=== PATIENT | female | born 1990 | race Caucasian/White ===

== ENCOUNTER 2017-04-23 11:17 | Emergency (ER) | payer MEDICAID ==
[~2017-04-23] VITALS: Ht 162.6 cm; Wt 68.0 kg
[~2017-04-23 11:17] MED LIST: ACET500C5 PO; CEPH-443 PO; HYDR-906 PO; IBUP800T25 PO; NO MEDS; PREN1TAB9 PO; PRENAT PO
[2017-04-23 11:24] VITALS: Ht 162.6 cm; Wt 68.0 kg
[2017-04-23 13:05] LABS: ADD SCAN DIFF NO
[2017-04-23 13:07] LABS: BASOPHILS % 0.4 % (0.0-2.0); EOSINOPHILS # 0.2 10^3/ul (0.0-0.5); HEMATOCRIT 40.9 % (37.0-47.0); HEMOGLOBIN 13.7 g/dl (12.0-16.0); LYMPHOCYTES # 2.1 10^3/ul (0.8-2.9); LYMPHOCYTES % 42.8 % (15.0-51.0); MEAN CORPUSCULAR HEMOGLOBIN 31.3 pg (29.0-33.0); MEAN CORPUSCULAR HGB CONC 33.5 g/dl (32.0-37.0); MEAN CORPUSCULAR VOLUME 93.4 fl (82.0-101.0); MEAN PLATELET VOLUME 9.1 fl (7.4-10.4); MONOCYTE # 0.4 10^3/ul (0.3-0.9); MONOCYTES % 7.6 % (0.0-11.0); NEUTROPHIL # 2.3 10^3/ul (1.6-7.5); NEUTROPHILS % 45.4 % (39.0-77.0); PLATELET COUNT 268 10^3/UL (140-415); RED BLOOD COUNT 4.38 10^6/ul (4.20-5.40); RED CELL DISTRIBUTION WIDTH 12.1 % (11.5-14.5)
[2017-04-23 13:26] LABS: ALBUMIN/GLOBULIN RATIO 1.51; BILIRUBIN,INDIRECT 0.3 mg/dl (0-1.1); BILIRUBIN,TOTAL 0.3 mg/dl (0.2-1.3); CALCIUM 9.4 mg/dl (8.4-10.2); CREATININE 0.61 mg/dl (0.44-1.00); POTASSIUM 4.2 mmol/L (3.5-5.1); TOTAL PROTEIN 8.3 g/dl (6.1-8.1)
[2017-04-23 13:28] LABS: ADD UMIC YES; UR ASCORBIC ACID NEGATIVE (NEGATIVE); UR BILIRUBIN (Dip) NEGATIVE (NEGATIVE); UR BLOOD (Dip) 1+ mg/dL (NEGATIVE); UR CLARITY CLEAR (CLEAR); UR COLOR YELLOW (YELLOW); UR GLUCOSE (Dip) NEGATIVE (NEGATIVE); UR KETONES (Dip) NEGATIVE (NEGATIVE); UR LEUKOCYTE ESTERASE (Dip) NEGATIVE Leu/ul (NEGATIVE); UR NITRITE (Dip) NEGATIVE (NEGATIVE); UR RBC 1 /HPF (0-5); UR SPECIFIC GRAVITY (Dip) 1.017 (1.003-1.030); UR TOTAL PROTEIN (Dip) NEGATIVE (NEGATIVE); UR UROBILINOGEN (Dip) NEGATIVE (NEGATIVE)
--- NOTE | 2017-04-23 14:10 | RADRPT ---
PROCEDURE: US Pelvis. CLINICAL INDICATION: 47 year-old female with left-sided pelvic pain. TECHNIQUE: Multiple sonographic images of the pelvis were obtained utilizing a transabdominal and endovaginal technique. The images were reviewed on a PACS workstation. COMPARISON: None. FINDINGS: The uterus is visualized and measures 7.3 cm sagittal by 3.3 cm AP by 4.3 cm transverse. The endomet rial echo complex is normal and measures 1.6 mm. There is a Nabothian cyst on the cervix measuring 3.8 mm.. There is no evidence for free fluid. The right ovary has a normal echotexture and measures 4 x 2.5 x 3.2 cm . There is a 1.8 x 0.9 was 0.8 cm minimally complex cyst or tiny septated fluid co llection in the area of the left adnexa. The left ovary is not visualized.. IMPRESSION: 1. 1.8 x 0 A 9 x 0.8 cm fluid collection/cyst with thin internal septations in the area of the left adnexa. This is likely benign. Recommend imaging follow-up and 8-10 weeks to see if this resolves. 2. The left ovary is not visualized. 3. 3.8 mm Nabothian cyst on the cervix. 4. Otherwise, unremarkable pelvic not of the sonogram. RPTAT:AAJJ Physician Loreta Date Time Electronically viewed and signed by Physician Loreta on 04/23/2017 14:09 ROSA/
[2017-04-23] MEDS ORDERED: FLUCONAZOLE 150 MG TAB PO ONE (16:00)
[2017-04-23] MEDS ORDERED: CEFTRIAXONE 250 MG INJ IM ONE (16:00)
[2017-04-23] MEDS ORDERED: LIDOCAINE 1% (MDV) 20 ML INJ SC ONE (16:00)
[2017-04-23] MEDS ORDERED: AZITHROMYCIN 250 MG TAB PO ONE (16:00)
[2017-04-23] MEDS ORDERED: IBUP-1542 PO (16:51)
[2017-04-23] MEDS ORDERED: FLUC150T17 PO (16:51)
[2017-04-23] MEDS ORDERED: METGEL45 TOP (16:51)
--- NOTE | 2017-04-23 17:15 | ERD ---
ER Documentation Chief Complaint Date/Time DATE: 04/23/17 TIME: 17:07 Chief Complaint intermittent abd pain x 4 months and nausea x 5 days HPI 27-year-old female patient presents to the ED complaining of intermittent abdominal pain for 4 months associated with some vaginal discharge. Patient reports that she has some left pelvic pain. Patient states that she has 1 sexual partner in the last 6 months. Reports that she last had sex 4 days ago. Reports that she smells a foul odor. Patient states that the vaginal discharge is white in color. Denies any diarrhea, fever, vomiting, chest pain, shortness of breath. ROS All systems reviewed and are negative except as per history of present illness. Medications Home Meds Active Scripts Fluconazole* (Diflucan*) 150 Mg Tablet, 150 MG PO DAILY, #1 TAB repeat in 3 days if vaginal discharge does not improve Prov:BRENT OTERO PA-C 04/23/17 Metronidazole* (Metrogel*) 0.75% -45 Gram Gel, 1 APPLIC TOP BID for 5 Days, #1 TUB Prov:BRENT OTERO PA-C 04/23/17 Ibuprofen* (Motrin*) 600 Mg Tab, 600 MG PO Q6, #30 TAB Prov:BRENT OTERO PA-C 04/23/17 Ibuprofen* (Motrin*) 800 Mg Tab, 800 MG PO Q6H Y for PAIN AND OR ELEVATED TEMP, #30 TAB Prov:FABIOLA FOUNTAIN MD 10/10/16 Cephalexin* (Keflex*) 500 Mg Capsule, 500 MG PO QID for 7 Days, CAP Prov:BERENICE COHEN PA-C 09/04/16 Hydrocodone/Acetaminophen ([place] 5-325 Tablet) 1 Each Tablet, 1 TAB PO Q6H Y for PAIN, #12 TAB Prov:BERENICE COHEN PA-C 09/04/16 Acetaminophen* (Tylophen*) 500 Mg Capsule, 500 MG PO Q6H Y for PAIN, #30 TAB Prov:MOR YU NP 12/09/15 Multivit/Min/Fol Ac/Iron/Pren* ( S*) 1 Tab Tab, 1 TAB PO DAILY, #30 TAB Prov:MOR YU NP 12/09/15 Reported Medications [none] Unknown Strength No Conflict Check 12/09/15 [No Meds ] No Conflict Check 03/08/14 Vits W-Ca,Fe,Fa(<1MG) ( #2) 1 Tab Tablet, 1 TAB PO DAILY 02/12/14 [None] No Conflict Check 06/19/10 Allergies Allergies: Coded Allergies: No Known Drug Allergies (Verified Allergy, Unknown, 04/23/17) PMhx/Soc Medical and Surgical Hx: pt denies Medical Hx, pt denies Surgical Hx History of Surgery: Yes (oophorectomy) Anesthesia Reaction: No Hx Neurological Disorder: No Hx Respiratory Disorders: No Hx Cardiac Disorders: No Hx Psychiatric Problems: No Hx Miscellaneous Medical Probl: No Hx Alcohol Use: No Hx Substance Use: No Hx Tobacco Use: No Smoking Status: Never smoker Physical Exam Vitals Vital Signs Date Time Temp Pulse Resp B/P Pulse Ox O2 Delivery O2 Flow Rate FiO2 04/23/17 11:24 98.0 94 18 129/70 98 Physical Exam Const: Hpx-spm-yuvicpbca, well-nourished. In no acute distress. Head: Atraumatic, normocephalic Eyes: Normal Conjunctiva without injection. No purulent discharge. ENT: Normal external ear, nose. Moist oropharynx without tonsillar exudates. Non -erythematous pharynx. Uvula midline. No drooling. No trismus. Neck: No cervical midline tenderness. Full range of motion. No meningismus. No cervical lymphadenopathy. No JVD. Resp: Clear to auscultation bilaterally. No wheezing, rhonchi, rales, or crackles. No accessory muscle use. No retractions. Cardio: Regular rate and rhythm. No murmurs, rubs or gallops. Abd: Soft, left pelvic tenderness, non distended. Normal bowel sounds. No palpable masses. No rebound tenderness. No guarding. Negative McBurney's point. Negative psoas sign. Negative obturator sign. : See exam in MDM. Skin: No petechiae or rashes Back: No midline tenderness. No CVA tenderness. Ext: No cyanosis, or edema. Neur: Awake and alert. Normal gait. Normal coordination. Psych: Normal Mood and Affect Results 24 hrs Laboratory Tests Test 04/23/17 12:35 04/23/17 12:55 Urine Color YELLOW Urine Clarity CLEAR Urine pH 7.0 Urine Specific [place] 1.017 Urine Ketones NEGATIVEmg/dL Urine Nitrite NEGATIVEmg/dL Urine Bilirubin NEGATIVEmg/dL Urine Urobilinogen NEGATIVEmg/dL Urine Leukocyte Esterase NEGATIVELeu/ul Urine Microscopic RBC 1/HPF Urine Microscopic WBC 1/HPF Urine Hemoglobin 1+mg/dL Urine Glucose NEGATIVEmg/dL Urine Total Protein NEGATIVEmg/dl White Blood Count 5.010^3/ul Red Blood Count 4.3810^6/ul Hemoglobin 13.7g/dl Hematocrit 40.9% Mean Corpuscular Volume 93.4fl Mean Corpuscular Hemoglobin 31.3pg Mean Corpuscular Hemoglobin Concent 33.5g/dl Red Cell Distribution Width 12.1% Platelet Count 56814^3/UL Mean Platelet Volume 9.1fl Neutrophils % 45.4% Lymphocytes % 42.8% Monocytes % 7.6% Eosinophils % 3.0% Basophils % 0.4% Nucleated Red Blood Cells % 0.0/100WBC Neutrophils # 2.310^3/ul Lymphocytes # 2.110^3/ul Monocytes # 0.410^3/ul Eosinophils # 0.210^3/ul Basophils # 0.010^3/ul Nucleated Red Blood Cells # 0.010^3/ul Sodium Level 139mmol/L Potassium Level 4.2mmol/L Chloride Level 102mmol/L Carbon Dioxide Level 30mmol/L Anion Gap 11 Blood Urea Nitrogen 12mg/dl Creatinine 0.61mg/dl Glucose Level 119mg/dl Calcium Level 9.4mg/dl Total Bilirubin 0.3mg/dl Direct Bilirubin 0.00mg/dl Indirect Bilirubin 0.3mg/dl Aspartate Amino Transf (AST/SGOT) 25IU/L Alanine Aminotransferase (ALT/SGPT) 29IU/L Alkaline Phosphatase 76IU/L Total Protein 8.3g/dl Albumin 5.0g/dl Globulin 3.30g/dl Albumin/Globulin Ratio 1.51 Lipase 71U/L Chlamydia trachomatis RNA (TMA) NOT DETECTED Chlamydia/GC Comment SEE NOTE Neisseria gonorrhoeae RNA (TMA) NOT DETECTED Current Medications Medications (Trade) Dose Ordered Sig/Griffin Route PRN Reason Start Time Stop Time Status Last Admin Dose Admin Fluconazole (Diflucan) 150 mg ONCE ONCE PO 04/23/17 16:00 04/23/17 16:01 DC 04/23/17 16:49 Azithromycin (Zithromax) 1,000 mg ONCE ONCE PO 04/23/17 16:00 04/23/17 16:01 DC 04/23/17 16:49 Ceftriaxone Sodium (Rocephin) 250 mg ONCE ONCE IM 04/23/17 16:00 04/23/17 16:01 DC 04/23/17 16:49 Lidocaine (Xylocaine 1% (Mdv) 20 ml) 20 ml ONCE ONCE SC 04/23/17 16:00 04/23/17 16:01 DC 04/23/17 16:49 Procedures/MDM 27-year-old female patient with no significant past medical history presents to the ED complaining of left pelvic pain, vaginal discharge. Patient is afebrile and nontoxic-appearing. Patient has normal vital signs. A pelvic ultrasound, CBC, CMP, lipase, urinalysis, urine was ordered to further evaluate patient. Patient also expresses some concern with chlamydia and gonorrhea, therefore the test is pending. CBC: No leukocytosis. No e/o of systemic infection. No e/o anemia. CMP: No e/o severe acidosis, alkalosis, renal failure, diabetic ketoacidosis, liver disease Lipase within normal limits. Urine: No leukocyte esterase, no nitrites, no hematuria. Negative urine . Pelvic Exam: Media Planner present Abdomen: [Nontender] External Genitalia: [Normal Skin] Speculum: [Normal vaginal mucosa, cheesy foul odor, white cervical discharge] Bimanual: [No adnexal masses or tenderness, No CMT] PROCEDURE: US Pelvis. CLINICAL INDICATION: 47 year-old female with left-sided pelvic pain. TECHNIQUE: Multiple sonographic images of the pelvis were obtained utilizing a transabdominal and endovaginal technique. The images were reviewed on a PACS workstation. COMPARISON: None. FINDINGS: The uterus is visualized and measures 7.3 cm sagittal by 3.3 cm AP by 4.3 cm transverse. The endometrial echo complex is normal and measures 1.6 mm. There is a Nabothian cyst on the cervix measuring 3.8 mm.. There is no evidence for free fluid. The right ovary has a normal echotexture and measures 4 x 2.5 x 3.2 cm . There is a 1.8 x 0.9 was 0.8 cm minimally complex cyst or tiny septated fluid collection in the area of the left adnexa. The left ovary is not visualized.. IMPRESSION: 1. 1.8 x 0 A 9 x 0.8 cm fluid collection/cyst with thin internal septations in the area of the left adnexa. This is likely benign. Recommend imaging follow-up and 8-10 weeks to see if this resolves. 2. The left ovary is not visualized. 3. 3.8 mm Nabothian cyst on the cervix. 4. Otherwise, unremarkable pelvic not of the sonogram. Patient's bleeding symptoms have stabilized while in the department. Patient's ultrasound shows an ovarian cyst. Patient also has a yeast infection based on cheesy discharge and was given Diflucan here in the ED. Ceftriaxone and Zithromax ordered and given for prophylaxis. Patient was strictly instructed to follow-up with an BUSINESS DIVISION CHAIR for further evaluation and treatment. Low suspicion for symptomatic anemia, ectopic , sepsis, PID, appendicitis, ovarian torsion, tubo-ovarian abscess, surgical abdomen, or other emergent conditions. Patient was educated that there is a risk for threatened . Discharge medications: Diflucan, MetroGel, Ibuprofen Patient to follow up with BUSINESS DIVISION CHAIR in 2 days for further evaluation and treatment. Patient is to return sooner to the ED for any worsening symptoms. Patient's questions were answered. Patient understood and agreed with discharge plan. Departure Diagnosis: Primary Impression: Vaginal discharge Additional Impression: Ovarian cyst Laterality: left Qualified Code: N83.202 - Cyst of left ovary Condition: Stable Patient Instructions: What Are Ovarian Cysts?, Vaginal Infection: Bacterial Vaginosis, Vaginal Infection: Yeast (Candidiasis) Referrals: [facility] YOU HAVE RECEIVED A MEDICAL SCREENING EXAM AND THE RESULTS INDICATE THAT YOU DO NOT HAVE A CONDITION THAT REQUIRES URGENT TREATMENT IN THE EMERGENCY DEPARTMENT. FURTHER EVALUATION AND TREATMENT OF YOUR CONDITION CAN WAIT UNTIL YOU ARE SEEN IN YOUR DOCTORS OFFICE WITHIN THE NEXT 1-2 DAYS. IT IS YOUR RESPONSIBILITY TO MAKE AN APPOINTMENT FOR FOLOW-UP CARE. IF YOU HAVE A PRIMARY DOCTOR --you should call your primary doctor and schedule an appointment IF YOU DO NOT HAVE A PRIMARY DOCTOR YOU CAN CALL OUR PHYSICIAN REFERRAL HOTLINE AT IF YOU CAN NOT AFFORD TO SEE A PHYSICIAN YOU CAN CHOSE FROM THE FOLLOWING [facility] [address] [facility]. [facility] [address] [facility] [facility] [address] [facility] [address] [facility] [address] [facility]. [facility]. [address] [facility]. [facility] YOU HAVE RECEIVED A MEDICAL SCREENING EXAM AND THE RESULTS INDICATE THAT YOU DO NOT HAVE A CONDITION THAT REQUIRES URGENT TREATMENT IN THE EMERGENCY DEPARTMENT. FURTHER EVALUATION AND TREATMENT OF YOUR CONDITION CAN WAIT UNTIL YOU ARE SEEN IN YOUR DOCTORS OFFICE WITHIN THE NEXT 1-2 DAYS. IT IS YOUR RESPONSIBILITY TO MAKE AN APPOINTMENT FOR FOLOW-UP CARE. IF YOU HAVE A PRIMARY DOCTOR --you should call your primary doctor and schedule and appointment IF YOU DO NOT HAVE A PRIMARY DOCTOR YOU CAN CALL OUR PHYSICIAN REFERRAL HOTLINE AT . IF YOU CAN NOT AFFORD TO SEE A PHYSICIAN YOU CAN CHOSE FROM THE FOLLOWING [facility] INSTITUTIONS: [facility] [address] [place] [address] [facility] [address] [place] [address] [facility] + [facility] [address] [place] [address] BUSINESS [employer] [place] [address] [facility] [address] [place], [place] [id number] OFFICE FAX MADHURI ANDERSON [address] [place], [place] [id number]EREIRA [place] [address] [place], [place] [id number] JASON CARLOS [address] [facility], [address] [address] [address] [place], [place] [phone] [facility] [address] [place], [place] [id number] [address] [facility], [facility] [id number] - DR YUSUF, THOMAS [address], [facility] [id number] GERBER, AB[place]OL[place] [address] [facility]. [address], [facility] [id number] WEEMS, FARID [address] [place] [address] [facility] Hours: 8:00 am - 5:00 pm Additional Instructions: Llame al doctor ovidio nydia PREET PARA DENTRO DE 2-3 PRITCHARD para nydia referencia a un obstetra/gineclogo para evaluacin adicional y tratamiento.Dgale a la secretaria que nosotros le instruimos hacer esta preet.Avise o llame si porras condicin se empeora antes de la preet. Regresa aqui si peor o no mejor. BRENT OTERO PA-C Apr 23, 2017 17:15
== END 2017-04-23 17:27 | disposition home or self-care (01) ==
LOC: FTE 11:17
DX: N89.8 Other specified noninflammatory disorders of vagina (principal); N83.202 Unspecified ovarian cyst, left side
CPT/HCPCS: 76830; 76856; 80053; 81001; 83690; 85025; 87591; J0696; Z7610; 36415; 96372

== ENCOUNTER 2017-06-06 21:13 | Emergency (ER) | payer SELFPAY ==
[~2017-06-06] VITALS: Ht 167.6 cm; Wt 58.0 kg
[~2017-06-06 21:13] MED LIST changes: +FLUC150T17 PO; +IBUP-1542 PO; +METGEL45 TOP
[2017-06-06 21:15] VITALS: Ht 167.6 cm; Wt 58.0 kg
[2017-06-06] MEDS ORDERED: morphine 4 MG/ML VIAL IV STA (22:01)
[2017-06-06] MEDS ORDERED: SOD CHLORIDE 0.9% 1,000 ML IV STA (22:01)
[2017-06-06] MEDS ORDERED: ONDANSETRON 4 MG INJ IV STA (22:01)
[2017-06-06 22:43] LABS: BASOPHILS % 0.4 % (0.0-2.0); EOSINOPHILS # 0.1 10^3/ul (0.0-0.5); EOSINOPHILS % 1.8 % (0.0-7.0); HEMATOCRIT 38.7 % (37.0-47.0); HEMOGLOBIN 13.5 g/dl (12.0-16.0); LYMPHOCYTES # 2.2 10^3/ul (0.8-2.9); LYMPHOCYTES % 29.5 % (15.0-51.0); MEAN CORPUSCULAR HEMOGLOBIN 31.9 pg (29.0-33.0); MEAN CORPUSCULAR HGB CONC 34.9 g/dl (32.0-37.0); MEAN CORPUSCULAR VOLUME 91.5 fl (82.0-101.0); MONOCYTE # 0.5 10^3/ul (0.3-0.9); MONOCYTES % 6.4 % (0.0-11.0); NEUTROPHILS % 61.5 % (39.0-77.0); PLATELET COUNT 271 10^3/UL (140-415); RED BLOOD COUNT 4.23 10^6/ul (4.20-5.40); WHITE BLOOD COUNT 7.3 10^3/ul (4.8-10.8)
[2017-06-06 22:49] LABS: ADD UMIC YES; UR ASCORBIC ACID NEGATIVE (NEGATIVE); UR BACTERIA FEW /HPF (NONE SEEN); UR BILIRUBIN (Dip) NEGATIVE (NEGATIVE); UR BLOOD (Dip) 2+ mg/dL (NEGATIVE); UR CLARITY CLEAR (CLEAR); UR COLOR STRAW (YELLOW); UR GLUCOSE (Dip) NEGATIVE (NEGATIVE); UR KETONES (Dip) NEGATIVE (NEGATIVE); UR LEUKOCYTE ESTERASE (Dip) 3+ Leu/ul (NEGATIVE); UR NITRITE (Dip) NEGATIVE (NEGATIVE); UR RBC 3 /HPF (0-5); UR SPECIFIC GRAVITY (Dip) 1.006 (1.003-1.030); UR SQUAMOUS EPITHELIAL CELL FEW /HPF (FEW); UR TOTAL PROTEIN (Dip) NEGATIVE (NEGATIVE); UR UROBILINOGEN (Dip) NEGATIVE (NEGATIVE)
[2017-06-06 23:05] LABS: ALANINE AMINOTRANSFERASE 32 IU/L (13-69); ALBUMIN 4.5 g/dl (3.3-4.9); ALBUMIN/GLOBULIN RATIO 1.28; ALKALINE PHOSPHATASE 82 IU/L (42-121); ANION GAP 22 (8-16); ASPARTATE AMINO TRANSFERASE 31 IU/L (15-46); BLOOD UREA NITROGEN 13 mg/dl (7-20); CARBON DIOXIDE 25 mmol/L (21-31); CHLORIDE 107 mmol/L (97-110); CREATININE 0.58 mg/dl (0.44-1.00); GLUCOSE 100 mg/dl (70-220); POTASSIUM 3.8 mmol/L (3.5-5.1); SODIUM 150 mmol/L (135-144)
[2017-06-06 23:10] LABS: ACETAMINOPHEN < 10.0 ug/ml (10.0-30.0); SALICYLATE < 1.0 mg/dl (5.0-30.0)
[2017-06-06 23:17] LABS: BARBITURATES Negative (NEGATIVE); BENZODIAZEPINES Negative (NEGATIVE); BILIRUBIN,INDIRECT 0.1 mg/dl (0-1.1); BILIRUBIN,TOTAL 0.1 mg/dl (0.2-1.3); CANNABINOIDS Negative (NEGATIVE); COCAINE Negative (NEGATIVE); OPIATES Negative (NEGATIVE)
--- NOTE | 2017-06-06 23:56 | RADRPT ---
PROCEDURE: CT ABDOMEN/PELVIS WITHOUT CONTRAST CLINICAL INDICATION: 27-year-old female with abdominal pain. TECHNIQUE: The study was performed utilizing a GE CytoValepeed VCT 64-slice CT scanner. Direct axia l sections were obtained through the abdomen and pelvis without the use of intravenous contrast mate rial. Sagittal and coronal reformations were obtained. One or more of the following dose reduction t echniques were utilized: automated exposure control, adjustment of the mA and/or kV according to pat ient's size or use of iterative reconstruction technique. The [facility] CTD/vol = 8.7 mGy; Total Exam DLP = 533.6 mGy-cm. COMPARISON: None. FINDINGS: There is trace bibasilar subsegmental atelectasis. There is no evidence for significant pleural eff usion. The liver has a normal size and contour. There is a nonspecific punctate 2 mm calcification within the left lobe of the liver near the dome of the diaphragm on axial image 3-26 and coronal im age 601-37. No intrahepatic nor extrahepatic biliary ductal dilatation is seen. The gallbladder dem onstrates no wall thickening nor pericholecystic fluid. No biliary stones are evident. The pancreas is without areas of abnormal attenuation. The spleen is identified and has a normal size without ab normal density. The adrenal glands are unremarkable. The kidneys are without abnormal density. No hy droureteronephrosis nor nephroureterolithiasis is evident. The urinary bladder contains urine. There is retained stool within the colon without evidence for bowel obstruction. The appendix is visuali zed and is without abnormal thickening or surrounding inflammatory reaction. The uterus is anteflexed. There is a right ovarian cyst measuring approximately 4.2 x 4.4 x 2.8 cm. There is no significant free fluid. The aortoiliac vessels are without aneurysmal dilatation. The osseous struc tures are intact. IMPRESSION: 1. Mild retained stool without evidence for bowel obstruction. 2. No CT evidence for appendicitis. 3. Right ovarian cyst. .Henrry Srinivasan MD, Date Time Electronically viewed and signed by .Henrry Srinivasan MD, MD on 06/06/2017 23:55 .[place]
--- NOTE | 2017-06-07 00:29 | RADRPT ---
PROCEDURE: CHEST - 1 VIEW CLINICAL INDICATION: 27-year-old female with shortness of breath. TECHNIQUE: A single frontal AP semi-erect portable view of the chest was performed. The images we re reviewed on a PACS workstation. COMPARISON: None. FINDINGS: The cardiomediastinal silhouette has a normal appearance. There is no evidence for an infiltrate. T he pulmonary vascularity is within normal limits. There is no evidence for pneumothorax or pneumomed iastinum. The osseous structures are intact. IMPRESSION: No evidence for active cardiopulmonary disease. .Henrry Srinivasan MD, Date Time Electronically viewed and signed by .Henrry Srinivasan MD, on 06/07/2017 00:29 .Emily/
[2017-06-07 00:53] VITALS: BP 105/76; PULSE 76; RESP 16
--- NOTE | 2017-06-07 01:46 | ERD ---
ER Documentation Chief Complaint Date/Time DATE: 06/07/17 TIME: 01:45 Chief Complaint chest congestion w/HAs,N/V,slight wheeze x 2 days HPI Patient is a 27-year-old female with no medical problems who presents with abdominal pain. She has had the symptoms for "a long time" but the pain was worse today. She describes it as a diffuse and constant pain. She had shortness of breath. She has had no treatment as of yet. She came in with her . Upon review of old medical record she has multiple visits to the ER for various complaints. She does not currently have a primary doctor. ROS All systems reviewed and are negative except as per history of present illness. Medications Home Meds Active Scripts Fluconazole* (Diflucan*) 150 Mg Tablet, 150 MG PO DAILY, #1 TAB repeat in 3 days if vaginal discharge does not improve Prov:BRENT OTERO PA-C 04/23/17 Metronidazole* (Metrogel*) 0.75% -45 Gram Gel, 1 APPLIC TOP BID for 5 Days, #1 TUB Prov:BRENT OTERO PA-C 04/23/17 Ibuprofen* (Motrin*) 600 Mg Tab, 600 MG PO Q6, #30 TAB Prov:BRENT OTERO PA-C 04/23/17 Ibuprofen* (Motrin*) 800 Mg Tab, 800 MG PO Q6H Y for PAIN AND OR ELEVATED TEMP, #30 TAB Prov:FABIOLA FOUNTAIN MD 10/10/16 Cephalexin* (Keflex*) 500 Mg Capsule, 500 MG PO QID for 7 Days, CAP Prov:BERENICE COHEN PA-C 09/04/16 Hydrocodone/Acetaminophen ([place] 5-325 Tablet) 1 Each Tablet, 1 TAB PO Q6H Y for PAIN, #12 TAB Prov:BERENICE COHEN PA-C 09/04/16 Acetaminophen* (Tylophen*) 500 Mg Capsule, 500 MG PO Q6H Y for PAIN, #30 TAB Prov:MOR YU NP 12/09/15 Multivit/Min/Fol Ac/Iron/Pren* ( S*) 1 Tab Tab, 1 TAB PO DAILY, #30 TAB Prov:MOR YU NP 12/09/15 Reported Medications [none] Unknown Strength No Conflict Check 12/09/15 [No Meds ] No Conflict Check 03/08/14 Vits W-Ca,Fe,Fa(<1MG) ( #2) 1 Tab Tablet, 1 TAB PO DAILY 02/12/14 [None] No Conflict Check 06/19/10 Allergies Allergies: Coded Allergies: No Known Drug Allergies (Verified Allergy, Unknown, 04/23/17) PMhx/Soc History of Surgery: Yes (oophorectomy) Anesthesia Reaction: No Hx Neurological Disorder: No Hx Respiratory Disorders: No Hx Cardiac Disorders: No Hx Psychiatric Problems: No Hx Miscellaneous Medical Probl: No Hx Alcohol Use: No Hx Substance Use: No Hx Tobacco Use: No Smoking Status: Never smoker FmHx Family History: No diabetes Physical Exam Vitals Vital Signs Date Time Temp Pulse Resp B/P Pulse Ox O2 Delivery O2 Flow Rate FiO2 06/07/17 00:53 76 16 105/76 95 Room Air 06/06/17 21:15 99.0 107 24 113/57 98 Physical Exam Const: Moderate distress Head: Atraumatic Eyes: Normal Conjunctiva ENT: Normal External Ears, Nose and Mouth. Neck: Full range of motion..~ No meningismus. Resp: Clear to auscultation bilaterally Cardio: Regular rate and rhythm, no murmurs Abd: Soft, Diffuse tenderness to palpation without rebound or guarding Skin: No petechiae or rashes Back: No midline or flank tenderness Ext: No cyanosis, or edema Neur: Awake Confused Psych: Normal Mood and Affect Result Diagram: 06/06/17221906/06/170 Results 24 hrs Laboratory Tests Test 06/06/17 22:20 White Blood Count 7.310^3/ul Red Blood Count 4.2310^6/ul Hemoglobin 13.5g/dl Hematocrit 38.7% Mean Corpuscular Volume 91.5fl Mean Corpuscular Hemoglobin 31.9pg Mean Corpuscular Hemoglobin Concent 34.9g/dl Red Cell Distribution Width 13.0% Platelet Count 08049^3/UL Mean Platelet Volume 9.0fl Neutrophils % 61.5% Lymphocytes % 29.5% Monocytes % 6.4% Eosinophils % 1.8% Basophils % 0.4% Nucleated Red Blood Cells % 0.0/100WBC Neutrophils # (Manual) 4.510^3/ul Lymphocytes # 2.210^3/ul Monocytes # 0.510^3/ul Eosinophils # 0.110^3/ul Basophils # 0.010^3/ul Nucleated Red Blood Cells # 0.010^3/ul Urine Color STRAW Urine Clarity CLEAR Urine pH 7.0 Urine Specific [place] 1.006 Urine Ketones NEGATIVEmg/dL Urine Nitrite NEGATIVEmg/dL Urine Bilirubin NEGATIVEmg/dL Urine Urobilinogen NEGATIVEmg/dL Urine Leukocyte Esterase 3+Norris/ul Urine Microscopic RBC 3/HPF Urine Microscopic WBC 4/HPF Urine Squamous Epithelial Cells FEW/HPF Urine Bacteria FEW/HPF Urine Hemoglobin 2+mg/dL Urine Glucose NEGATIVEmg/dL Urine Total Protein NEGATIVEmg/dl Sodium Level 150mmol/L Potassium Level 3.8mmol/L Chloride Level 107mmol/L Carbon Dioxide Level 25mmol/L Anion Gap 22 Blood Urea Nitrogen 13mg/dl Creatinine 0.58mg/dl Glucose Level 100mg/dl Calcium Level 9.0mg/dl Total Bilirubin 0.1mg/dl Direct Bilirubin 0.00mg/dl Indirect Bilirubin 0.1mg/dl Aspartate Amino Transf (AST/SGOT) 31IU/L Alanine Aminotransferase (ALT/SGPT) 32IU/L Alkaline Phosphatase 82IU/L Total Protein 8.0g/dl Albumin 4.5g/dl Globulin 3.50g/dl Albumin/Globulin Ratio 1.28 Lipase 63U/L Salicylates Level < 1.0mg/dl Urine Opiates Screen Negative Acetaminophen Level < 10.0ug/ml Urine Barbiturates Negative Urine Amphetamines Screen Negative Urine Benzodiazepines Screen Negative Urine Cocaine Screen Negative Urine Cannabinoids Negative Ethyl Alcohol Level 285.0mg/dl Current Medications Medications (Trade) Dose Ordered Sig/Griffin Route PRN Reason Start Time Stop Time Status Last Admin Dose Admin Sodium Chloride (NS) 1,000 ml @ 1,000 mls/hr Q1H STAT IV 06/06/17 22:01 06/06/17 23:00 DC 06/06/17 22:34 Ondansetron HCl (Zofran Inj) 4 mg ONCE STAT IV 06/06/17 22:01 06/06/17 22:03 DC 06/06/17 22:34 Morphine Sulfate (morphine) 4 mg ONCE STAT IV 06/06/17 22:01 06/06/17 22:03 DC 06/06/17 22:35 Procedures/MDM CT scan of the abdomen pelvis shows no acute surgical process per radiology. Patient is a 27-year-old female who presents with abdominal pain. She was slightly confused and had shortness of breath as well. She smelled of alcohol so a psychiatric workup was done as well and the patient was found to have a significantly elevated alcohol level of 285. I believe this is likely the cause of most of her symptoms. I doubt cholecystitis, pancreatitis, appendicitis, or bowel obstruction. The patient will need follow-up with a primary doctor she does not currently have a primary doctor. She will be given a list of the local clinics for follow-up with. She was instructed not to drink alcohol to excess in the future. Her did not know she was drinking alcohol. Departure Diagnosis: Primary Impression: Alcohol intoxication Complication of substance-induced condition: with delirium Qualified Code: F10.921 - Alcohol intoxication with delirium Additional Impressions: Altered mental status Altered mental status type: unspecified Qualified Code: R41.82 - Altered mental status, unspecified altered mental status type Abdominal pain Abdominal location: generalized Qualified Code: R10.84 - Generalized abdominal pain Condition: Fair Patient Instructions: Abdominal Pain, Alcohol Intoxication [facility] Usted se guy hecho un examen mdico de control que le indica que no est en nydia condicin que requiera tratamiento urgente en el Departamento de Emergencia. Un estudio ms profundo y el tratamiento de porras condicin pueden esperar sin ningn riesgo hasta que usted sea atendida/o en el consultorio de porras mdico o nydia cl mayelin. Es responsabilidad suya arreglar nydia preet para el seguimiento del iris. MANEJO DE CONDICIONES NO URGENTES EN EL FUTURO 1) Si usted tiene un mdico de atencin primaria: Usted debera llamar a porras mdico de atencin primaria antes de venir al departamento de emergencia. Despus de las horas de consultorio, porras doctor o porras asociado/a est disponible por telfono. El mdico o enfermero de evan en el servicio telefnico puede asesorarle por wally medio para atender el problema, o iris contrario se puede programar nydia preet. 2) Si usted no tiene un mdico de atencin primaria: Llame al mdico o clnica de referencia que aparece abajo abrahan las horas de consultorio para hacer nydia preet para que le vean. CLINICAS: [facility] [phone] [facility] [phone] [address] [facility] [phone] [facility]. [place] [phone] [facility]. [place] [phone] [facility]. [phone] [address] Additional Instructions: Llame al doctor MAANA y ovidio nydia PREET PARA DENTRO DE 1-2 PRITCHARD.Dgale a la secretaria que nosotros le instruimos hacer esta preet.Avise o llame si porras condicin se empeora antes de la preet. Regresa aqui si peor o no mejor. NETO MARQUES MD Jun 07, 2017 01:46
== END 2017-06-07 00:54 | disposition home or self-care (01) ==
LOC: E/R 21:13
DX: F10.921 Alcohol use, unspecified with intoxication delirium (principal); R41.82 Altered mental status, unspecified; R11.2 Nausea with vomiting, unspecified
CPT/HCPCS: 36415; 71010; 74176; 80053; 80306; 80307; 81001; 83690; 85025; 93005; 96374; 96375; 99285; J2270; J2405; J7030

== ENCOUNTER 2017-07-30 19:10 | Emergency (ER) | payer MEDICAID ==
[~2017-07-30] VITALS: Ht 162.6 cm; Wt 68.5 kg
[2017-07-30 19:17] VITALS: Ht 162.6 cm; Wt 68.5 kg
[2017-07-30] MEDS ORDERED: FAMOTIDINE 20 MG INJ IV STA (21:22)
[2017-07-30] MEDS ORDERED: LIDOCAINE/MYLANTA 40 ML BTL PO STA (21:22)
[2017-07-30] MEDS ORDERED: ONDANSETRON 4 MG INJ IV STA (21:59)
--- NOTE | 2017-07-30 23:03 | RADRPT ---
PROCEDURE: XR Chest. CLINICAL INDICATION: Abdominal pain TECHNIQUE: AP Portable chest. COMPARISON: No pertinent prior examinations were submitted for comparison. FINDINGS: The cardiomediastinal silhouette is normal. The lungs are clear. The osseous structures are unrema rkable. There is no free air under the diaphragm. IMPRESSION: No acute findings. RPTAT: HIKT .Bassam Hanks MD, MD Date Time Electronically viewed and signed by .Bassam Hanks MD, on 07/30/2017 23:03 .T/
[2017-07-30 23:04] LABS: BASOPHILS % 0.2 % (0.0-2.0); EOSINOPHILS # 0.1 10^3/ul (0.0-0.5); EOSINOPHILS % 0.4 % (0.0-7.0); HEMATOCRIT 37.9 % (37.0-47.0); HEMOGLOBIN 13.1 g/dl (12.0-16.0); LYMPHOCYTES # 1.3 10^3/ul (0.8-2.9); LYMPHOCYTES % 9.6 % (15.0-51.0); MEAN CORPUSCULAR HEMOGLOBIN 32.1 pg (29.0-33.0); MEAN CORPUSCULAR HGB CONC 34.6 g/dl (32.0-37.0); MEAN CORPUSCULAR VOLUME 92.9 fl (82.0-101.0); MEAN PLATELET VOLUME 9.6 fl (7.4-10.4); MONOCYTE # 0.6 10^3/ul (0.3-0.9); MONOCYTES % 4.3 % (0.0-11.0); NEUTROPHIL # 11.2 10^3/ul (1.6-7.5); NEUTROPHILS % 85.1 % (39.0-77.0); PLATELET COUNT 277 10^3/UL (140-415); RED BLOOD COUNT 4.08 10^6/ul (4.20-5.40); RED CELL DISTRIBUTION WIDTH 12.2 % (11.5-14.5); WHITE BLOOD COUNT 13.2 10^3/ul (4.8-10.8)
--- NOTE | 2017-07-30 23:05 | RADRPT ---
PROCEDURE: US Pelvis CLINICAL INDICATION: Left pelvic pain. TECHNIQUE: Sonographic evaluation of the pelvis was performed utilizing both transabdominal and tr ansvaginal technique. Images were reviewed on the high-resolution PACS workstation. COMPARISON: CT pelvis 06/06/2017, ultrasound pelvis 04/23 2017 FINDINGS: The uterus is normal in size, echogenicity, and morphology. The uterus is a 0.4 x 4 x 4.8 cm. The endometrium is 1.5 mm measuring x in diameter. The right ovary measures 4.5 x 4 x 3.7 cm. There is a 3.2 x 2.5 x 3.7 cm simple cyst in the right ov angela. Right ovary is otherwise normal appearance of vascular flow. Left ovary was not visualized.. There are no adnexal masses. There is no free fluid in the pelvis. IMPRESSION: 1. Normal examination of the uterus. 2. Simple right ovarian cyst. 3. Left ovary not identified. 4. No adnexal mass or free fluid RPTAT: HMVK .Felipe Harley MD, MD Date Time Electronically viewed and signed by .Felipe aHrley MD, MD on 07/30/2017 23:05 .K/
[2017-07-30 23:23] LABS: ADD UMIC YES; UR ASCORBIC ACID NEGATIVE (NEGATIVE); UR BILIRUBIN (Dip) NEGATIVE (NEGATIVE); UR BLOOD (Dip) 1+ mg/dL (NEGATIVE); UR CLARITY CLEAR (CLEAR); UR COLOR YELLOW (YELLOW); UR GLUCOSE (Dip) NEGATIVE (NEGATIVE); UR KETONES (Dip) TRACE mg/dL (NEGATIVE); UR LEUKOCYTE ESTERASE (Dip) TRACE Leu/ul (NEGATIVE); UR MUCUS MANY /HPF (NONE SEEN); UR NITRITE (Dip) NEGATIVE (NEGATIVE); UR RBC 11 /HPF (0-5); UR SPECIFIC GRAVITY (Dip) 1.029 (1.003-1.030); UR SQUAMOUS EPITHELIAL CELL FEW /HPF (FEW); UR TOTAL PROTEIN (Dip) 1+ mg/dl (NEGATIVE); UR UROBILINOGEN (Dip) NEGATIVE (NEGATIVE)
[2017-07-30 23:24] LABS: ALBUMIN 4.3 g/dl (3.3-4.9); ALBUMIN/GLOBULIN RATIO 1.19; BILIRUBIN,INDIRECT 0.4 mg/dl (0-1.1); BILIRUBIN,TOTAL 0.4 mg/dl (0.2-1.3); CALCIUM 9.8 mg/dl (8.4-10.2); CREATININE 0.52 mg/dl (0.44-1.00); POTASSIUM 3.9 mmol/L (3.5-5.1); TOTAL PROTEIN 7.9 g/dl (6.1-8.1)
[2017-07-31] MEDS ORDERED: RANI150T9 PO
[2017-07-31] MEDS ORDERED: ACET500C5 PO
[2017-07-31] MEDS ORDERED: CEPH-443 PO
--- NOTE | 2017-07-31 01:05 | ERD ---
ER Documentation Chief Complaint Chief Complaint pelvic pain x 3 days, vomiting, back pain HPI 27-year-old female patient with a past medial history of ovarian cyst presents to the ED complaining of lower pelvic pain that started 3 days ago as well as a few episodes of nonbilious nonbloody vomiting and flank pain. Patient reports that her abdominal pain is mainly in the epigastric region and left lower quadrant. States that eating makes the pain worse. States that the pain radiates up to her chest. Reports that eating chili and spicy food makes her abdominal pain worse. Reports that this is a burning sensation. Denies any vaginal bleeding, vaginal discharge, dysuria, urgency, frequency. Patient also reports that she has some chest pain and is worse with breathing. Denies any recent traveling. Denies any leg swelling. Reports normal daily bowel movements. ROS All systems reviewed and are negative except as per history of present illness. Medications Home Meds Active Scripts Cephalexin* (Keflex*) 500 Mg Capsule, 500 MG PO QID for 7 Days, CAP Prov:BRENT OTERO PA-C 07/31/17 Ranitidine Hcl* (Zantac*) 150 Mg Tablet, 150 MG PO BID Y for EPIGASTRIC PAIN, # 30 TAB Prov:BRENT OTERO PA-C 07/31/17 Acetaminophen* (Tylophen*) 500 Mg Capsule, 1 CAP PO Q6H Y for PAIN AND OR ELEVATED TEMP, #20 CAP Prov:BRENT OTERO PA-C 07/31/17 Fluconazole* (Diflucan*) 150 Mg Tablet, 150 MG PO DAILY, #1 TAB repeat in 3 days if vaginal discharge does not improve Prov:BRENT OTERO PA-C 04/23/17 Metronidazole* (Metrogel*) 0.75% -45 Gram Gel, 1 APPLIC TOP BID for 5 Days, #1 TUB Prov:BRENT OTEROC 04/23/17 Ibuprofen* (Motrin*) 600 Mg Tab, 600 MG PO Q6, #30 TAB Prov:BRENT OTEROC 04/23/17 Ibuprofen* (Motrin*) 800 Mg Tab, 800 MG PO Q6H Y for PAIN AND OR ELEVATED TEMP, #30 TAB Prov:FABIOLA FOUNTAIN MD 10/10/16 Cephalexin* (Keflex*) 500 Mg Capsule, 500 MG PO QID for 7 Days, CAP Prov:BERENICE COHEN PA-C 09/04/16 Hydrocodone/Acetaminophen ([place] 5-325 Tablet) 1 Each Tablet, 1 TAB PO Q6H Y for PAIN, #12 TAB Prov:BERENICE COHEN PA-C 09/04/16 Acetaminophen* (Tylophen*) 500 Mg Capsule, 500 MG PO Q6H Y for PAIN, #30 TAB Prov:MOR YU NP 12/09/15 Multivit/Min/Fol Ac/Iron/Pren* ( S*) 1 Tab Tab, 1 TAB PO DAILY, #30 TAB Prov:MOR YU NP 12/09/15 Reported Medications [none] Unknown Strength No Conflict Check 12/09/15 [No Meds ] No Conflict Check 03/08/14 Vits W-Ca,Fe,Fa(<1MG) ( #2) 1 Tab Tablet, 1 TAB PO DAILY 02/12/14 [None] No Conflict Check 06/19/10 Allergies Allergies: Coded Allergies: No Known Drug Allergies (Verified Allergy, Unknown, 04/23/17) PMhx/Soc History of Surgery: Yes (ovarian cyst) Anesthesia Reaction: No Hx Neurological Disorder: No Hx Respiratory Disorders: No Hx Cardiac Disorders: No Hx Psychiatric Problems: No Hx Miscellaneous Medical Probl: No Hx Alcohol Use: No Hx Substance Use: No Hx Tobacco Use: No Smoking Status: Never smoker Physical Exam Vitals Vital Signs Date Time Temp Pulse Resp B/P Pulse Ox O2 Delivery O2 Flow Rate FiO2 07/30/17 19:17 99.1 89 20 133/78 98 Physical Exam Const: [id number], well-nourished. In no acute distress. Head: Atraumatic, normocephalic Eyes: Normal Conjunctiva without injection. No purulent discharge. ENT: Normal external ear, nose. Moist oropharynx without tonsillar exudates. Non -erythematous pharynx. Uvula midline. No drooling. No trismus. Neck: No cervical midline tenderness. Full range of motion. No meningismus. No cervical lymphadenopathy. No JVD. Resp: Clear to auscultation bilaterally. No wheezing, rhonchi, rales, or crackles. No accessory muscle use. No retractions. Cardio: Regular rate and rhythm. No murmurs, rubs or gallops. Abd: Soft, epigastric tenderness, left lower quadrant abdominal tenderness, non distended. Normal bowel sounds. No palpable masses. No rebound tenderness. No guarding. Negative McBurney's point. Negative psoas sign. Negative obturator sign. Skin: No petechiae or rashes Back: No midline tenderness. No CVA tenderness. Ext: No cyanosis, or edema. Neur: Awake and alert. Normal gait. Normal coordination. Psych: Normal Mood and Affect Results 24 hrs Laboratory Tests Test 07/30/17 22:20 White Blood Count 13.210^3/ul Red Blood Count 4.0810^6/ul Hemoglobin 13.1g/dl Hematocrit 37.9% Mean Corpuscular Volume 92.9fl Mean Corpuscular Hemoglobin 32.1pg Mean Corpuscular Hemoglobin Concent 34.6g/dl Red Cell Distribution Width 12.2% Platelet Count 89823^3/UL Mean Platelet Volume 9.6fl Neutrophils % 85.1% Lymphocytes % 9.6% Monocytes % 4.3% Eosinophils % 0.4% Basophils % 0.2% Nucleated Red Blood Cells % 0.0/100WBC Neutrophils # 11.210^3/ul Lymphocytes # 1.310^3/ul Monocytes # 0.610^3/ul Eosinophils # 0.110^3/ul Basophils # 0.010^3/ul Nucleated Red Blood Cells # 0.010^3/ul Urine Color YELLOW Urine Clarity CLEAR Urine pH 6.0 Urine Specific [place] 1.029 Urine Ketones TRACEmg/dL Urine Nitrite NEGATIVEmg/dL Urine Bilirubin NEGATIVEmg/dL Urine Urobilinogen NEGATIVEmg/dL Urine Leukocyte Esterase TRACELeu/ul Urine Microscopic RBC 11/HPF Urine Microscopic WBC 5/HPF Urine Squamous Epithelial Cells FEW/HPF Urine Mucus MANY/HPF Urine Hemoglobin 1+mg/dL Urine Glucose NEGATIVEmg/dL Urine Total Protein 1+mg/dl Sodium Level 140mmol/L Potassium Level 3.9mmol/L Chloride Level 103mmol/L Carbon Dioxide Level 29mmol/L Anion Gap 12 Blood Urea Nitrogen 16mg/dl Creatinine 0.52mg/dl Glucose Level 94mg/dl Calcium Level 9.8mg/dl Total Bilirubin 0.4mg/dl Direct Bilirubin 0.00mg/dl Indirect Bilirubin 0.4mg/dl Aspartate Amino Transf (AST/SGOT) 25IU/L Alanine Aminotransferase (ALT/SGPT) 26IU/L Alkaline Phosphatase 70IU/L Total Protein 7.9g/dl Albumin 4.3g/dl Globulin 3.60g/dl Albumin/Globulin Ratio 1.19 Lipase 49U/L Current Medications Medications (Trade) Dose Ordered Sig/Griffin Route PRN Reason Start Time Stop Time Status Last Admin Dose Admin Famotidine (Pepcid Iv) 20 mg ONCE STAT IV 07/30/17 21:22 07/30/17 21:25 DC 07/30/17 21:22 Miscellaneous Medication (Gi Cocktail (2)) 40 ml ONCE STAT PO 07/30/17 21:22 07/30/17 21:25 DC 07/30/17 21:22 Ondansetron HCl (Zofran Inj) 4 mg ONCE STAT IV 07/30/17 21:59 07/30/17 22:00 DC 07/30/17 22:57 Procedures/MDM 27-year-old female patient with no significant past medical history presents to the ED complaining of left lower quadrant abdominal pain and epigastric pain. Patient is afebrile and nontoxic-appearing. Patient has normal vital signs. Patient was further worked up with CBC, CMP, lipase, UA, CXR. Patient's pain and symptoms have improved after treatment with cocktail, 20 mg IV famotidine, 4 mg IV Zofran. CBC: Leukocytosis of 13.2. No e/o of systemic infection. No e/o anemia. CMP: No e/o severe acidosis, alkalosis, renal failure, diabetic ketoacidosis, liver disease Lipase within normal limits. Urine: No leukocyte esterase, no nitrites, no hematuria. Urine : negative PROCEDURE: XR Chest. CLINICAL INDICATION: Abdominal pain TECHNIQUE: AP Portable chest. COMPARISON: No pertinent prior examinations were submitted for comparison. FINDINGS: The cardiomediastinal silhouette is normal. The lungs are clear. The osseous structures are unremarkable. There is no free air under the diaphragm. IMPRESSION: No acute findings. PROCEDURE: US Pelvis CLINICAL INDICATION: Left pelvic pain. TECHNIQUE: Sonographic evaluation of the pelvis was performed utilizing both transabdominal and transvaginal technique. Images were reviewed on the high- resolution PACS workstation. COMPARISON: CT pelvis 06/06/2017, ultrasound pelvis 04/23 2017 FINDINGS: The uterus is normal in size, echogenicity, and morphology. The uterus is a 0.4 x 4 x 4.8 cm. The endometrium is 1.5 mm measuring x in diameter. The right ovary measures 4.5 x 4 x 3.7 cm. There is a 3.2 x 2.5 x 3.7 cm simple cyst in the right ovary. Right ovary is otherwise normal appearance of vascular flow. Left ovary was not visualized.. There are no adnexal masses. There is no free fluid in the pelvis. IMPRESSION: 1. Normal examination of the uterus. 2. Simple right ovarian cyst. 3. Left ovary not identified. 4. No adnexal mass or free fluid EKG reviewed and interpreted by Dr. Simpson Rate/Rhythm: [67 bpm, Normal Sinus Rhythm] No ectopy, no ST elevations, normal axis. QRS, ST, T-waves: [No changes consistent w/ acute ischemia] Impression: [No evidence of ischemia or arrhythmia] Patient has a simple right ovarian cyst. Low suspicion for ectopic , ovarian torsion, gastritis, GERD, peptic ulcer disease, cholecystitis, choledocholithiasis, cholangitis, pancreatitis, appendicitis, bowel obstruction , ileus, volvulus, nephrolithiasis, pyelonephritis, hepatitis, perforated viscus , diverticulitis, strangulated incarcerated hernia, DKA, acute abdomen, mesenteric ischemia or other emergent conditions. Low suspicion for acute myocardial infarction, pneumothorax, pneumonia, cardiac tamponade, Yumiko- Parkinson-White Syndrome, Brugada Syndrome, pulmonary embolism, AAA, aortic dissection, thoracic aortic dissection, endocarditis, pericarditis, cocaine- related ischema, Boerhaave's syndrome, cardiac dysrhythmias,meningitis, intracranial bleed, seizure, stroke, TIA or other emergent conditions. 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 Instructed patient to return to the ED sooner for any worsening symptoms. Patient's questions were answered. Patient understood and agreed with discharge plan. Patient discharged stable. Departure Diagnosis: Primary Impression: Abdominal pain Abdominal location: unspecified location Qualified Code: R10.9 - Abdominal pain, unspecified abdominal location Additional Impression: Flank pain Condition: Stable Patient Instructions: What Are Ovarian Cysts?, Urinary Tract Infections in Women, Gastritis Vs. Ulcer Referrals: [facility] () Usted se guy hecho un examen mdico de control que le indica que no est en nydia condicin que requiera tratamiento urgente en el Departamento de Emergencia. Un estudio ms profundo y el tratamiento de porras condicin pueden esperar sin ningn riesgo hasta que usted sea atendida/o en el consultorio de porras mdico o nydia cl mayelin. Es responsabilidad suya arreglar nydia preet para el seguimiento del iris. MANEJO DE CONDICIONES NO URGENTES EN EL FUTURO 1) Si usted tiene un mdico de atencin primaria: Usted debera llamar a porras mdico de atencin primaria antes de venir al departamento de emergencia. Despus de las horas de consultorio, porras doctor o porras asociado/a est disponible por telfono. El mdico o enfermero de evan en el servicio telefnico puede asesorarle por wally medio para atender el problema, o iris contrario se puede programar nydia preet. 2) Si usted no tiene un mdico de atencin primaria: Llame al mdico o clnica de referencia que aparece abajo abrahan las horas de consultorio para hacer nydia preet para que le vean. CLINICAS: [facility] [phone] [facility] [phone] [facility] [phone] [facility] [phone] [place] [phone] [facility]. [phone] [address] [facility]. [facility] () Usted se guy hecho un examen mdico de control que le indica que no est en nydia condicin que requiera tratamiento urgente en el Departamento de Emergencia. Un estudio ms profundo y el tratamiento de porras condicin pueden esperar sin ningn riesgo hasta que usted sea atendida/o en el consultorio de porras mdico o nydia cl mayelin. Es responsabilidad suya arreglar nydia preet para el seguimiento del iris. MANEJO DE CONDICIONES NO URGENTES EN EL FUTURO 1) Si usted tiene un mdico de atencin primaria: Usted debera llamar a porras mdico de atencin primaria antes de venir al departamento de emergencia. Despus de las horas de consultorio, porras doctor o porras asociado/a est disponible por telfono. El mdico o enfermero de evan en el servicio telefnico puede asesorarle por wally medio para atender el problema, o iris contrario se puede programar nydia preet. 2) Si usted no tiene un mdico de atencin primaria: Llame al mdico o condado institucions de referencia que aparece abajo abrahan las horas de consultorio para hacer nydia preet para que le vean. SI USTED NO PUEDE PAGAR PARA TALA UN MEDICO puede ir a: [facility] [address] [place] [address] [facility] [address] [place] [address] [facility] [address] [place] [address] [facility] [address] [place], [place] [id number] [facility]ENT [facility]/SPECIALTIES Additional Instructions: Llame al doctor MAANA y ovidio nydia PREET PARA DENTRO DE 2-3 PRITCHARD para nydia remisi n para tala a un gastroenterlogo para nydia endoscopia y METAL CEILING HANGER para la gerencia adicional de porras quiste ovrico.Dgale a la secretaria que nosotros le instruimos hacer esta preet.Avise o llame si porras condicin se empeora antes de la preet. Regresa aqui si peor o no mejor. BRENT OTERO PA-C Jul 31, 2017 01:05 preet. Regresa aqui si peor o no mejor. BRENT OTERO PA-C Jul 31, 2017 01:05 instruimos hacer esta preet.Avise o llame si porras condicin se empeora antes de la preet. Regresa aqui si peor o no mejor. BRENT OTERO PA-C Jul 31, 2017 01:05
== END 2017-07-31 00:25 | disposition home or self-care (01) ==
LOC: FTE 19:10
DX: R10.2 Pelvic and perineal pain (principal); R10.13 Epigastric pain; R10.32 Left lower quadrant pain; R11.10 Vomiting, unspecified
CPT/HCPCS: 36415; 71010; 76830; 76856; 80053; 81001; 83690; 85025; 93005; 96374; J2405; Z7502; Z7610

== ENCOUNTER 2018-04-20 14:00 | Emergency (ER) | END 2018-04-20 19:21 | disposition home or self-care (01) ==

== ENCOUNTER 2018-10-06 09:37 | Emergency (ER) | END 2018-10-06 11:30 | disposition home or self-care (01) ==

== ENCOUNTER 2018-12-23 18:41 | Emergency (ER) | payer SELFPAY ==
[~2018-12-23] VITALS: Ht 152.4 cm; Wt 66.0 kg
[~2018-12-23 18:41] MED LIST changes: +AMOX1TAB10 PO; +CIPR500T4 PO; +CIPR7.5D BOTH EARS; +CYCL10TA7 PO; +FLUC150T PO; -FLUC150T17 PO; +HYDR-4011 PO; -HYDR-906 PO; +IBUP-1561 PO; -IBUP800T25 PO; +IBUP800T48 PO; +MED4DP PO; +NAPR-985 PO; +RANI150T35 PO
[2018-12-23 18:52] VITALS: BP 122/76; PULSE 86; RESP 18; Ht 152.4 cm; Wt 66.0 kg
== END 2018-12-23 22:15 | disposition left against medical advice (07) ==
LOC: E/R 18:41
DX: Z53.21 Procedure and treatment not carried out due to patient leaving prior to being seen by health care provider (principal)

== ENCOUNTER 2019-02-23 16:49 | Emergency (ER) | payer MEDICAID, OTHER ==
[~2019-02-23] VITALS: Ht 162.6 cm; Wt 67.5 kg
[2019-02-23 16:54] VITALS: BP 128/60; PULSE 69; RESP 20; Ht 162.6 cm; Wt 67.5 kg
[2019-02-23] MEDS ORDERED: HYDROCODONE/APAP (5/325) TAB PO ONE (17:30)
--- NOTE | 2019-02-23 19:17 | ERD ---
ER Documentation Chief Complaint Chief Complaint c/o left rib pain after fall 4 days ago HPI Patient is a 28-year-old female no past medical history presents the ER for concerns of left-sided rib pain after a fall injury 4 days ago. Patient states 4 days ago she was cleaning her bathroom when she slipped on the wet tile and landed on the railing of the bathtub. Patient denies any head injuries. Patient denies any nausea or vomiting. Patient states pain is worse with movement. Patient does have some bruising to her left chest wall. Patient denies any chest pain, shortness of breath or LOC. ROS All systems reviewed and are negative except as per history of present illness. Medications Home Meds Active Scripts Methylprednisolone* (Medrol* DOSE PACK) 4 Mg/Dose-Pack Tab.ds.pk, 4 MG PO . DIRECTED, #1 PACKET Prov:MAME PARKER PA-C 10/06/18 Cyclobenzaprine Hcl* (Cyclobenzaprine Hcl*) 10 Mg Tablet, 10 MG PO TID, #15 TAB Prov:MAME PARKER PA-C 10/06/18 Ciprofloxacin Hcl* (Ciprofloxacin Hcl*) 500 Mg Tablet, 500 MG PO BID for 7 Days, TAB Prov:MAME PARKER PA-C 10/06/18 Naproxen* (Naprosyn*) 500 Mg Tablet, 500 MG PO BID PRN for PAIN AND/OR INFLAMMATION, #30 TAB Prov:MAME PARKER PA-C 10/06/18 Hydrocodone/Acetaminophen (Cumming 5-325 Tablet) 1 Each Tablet, 1 TAB PO Q6H PRN for PAIN, #7 TAB Prov:MAME PARKER PA-C 10/06/18 Ibuprofen* (Motrin*) 400 Mg Tab, 400 MG PO Q6, #30 TAB Prov:KAYODE ASHLEY PA-C 04/20/18 Acetaminophen* (Tylophen*) 500 Mg Capsule, 1 CAP PO Q6H PRN for PAIN AND OR ELEVATED TEMP, #20 CAP Prov:PASILABAN,GABBIEAR F 02/16/18 Ibuprofen* (Motrin*) 800 Mg Tab, 800 MG PO Q6H PRN for PAIN AND OR ELEVATED TEMP, #30 TAB Prov:PASILABANGABBIEAR F 02/16/18 Amoxicillin/Potassium Clav (Amox-Clav 875-125 mg Tablet) 875-125 mg Tab, 1 TAB PO BID for 10 Days, #20 TAB Prov:LISA VAZQUEZ 02/16/18 Ciprofloxacin Hcl/Dexameth (Ciprodex Otic Suspension) 7.5 Ml Drops.susp, 4 DROP BOTH EARS BID for 7 Days, EA Prov:LISA VAZQUEZ 02/16/18 Cephalexin* (Keflex*) 500 Mg Capsule, 500 MG PO QID for 7 Days, CAP Prov:BRENT OTERO PA-C 07/31/17 Ranitidine Hcl* (Zantac*) 150 Mg Tablet, 150 MG PO BID PRN for EPIGASTRIC PAIN, #30 TAB Prov:BRENT OTERO PA-C 07/31/17 Acetaminophen* (Tylophen*) 500 Mg Capsule, 1 CAP PO Q6H PRN for PAIN AND OR ELEV ATED TEMP, #20 CAP Prov:BRENT OTERO PA-C 07/31/17 Fluconazole* (Diflucan*) 150 Mg Tablet, 150 MG PO DAILY, #1 TAB repeat in 3 days if vaginal discharge does not improve Prov:BRENT OTERO PA-C 04/23/17 Metronidazole* (Metrogel*) 0.75% -45 Gram Gel, 1 APPLIC TOP BID for 5 Days, #1 TUB Prov:BRENT OTERO PA-C 04/23/17 Ibuprofen* (Motrin*) 600 Mg Tab, 600 MG PO Q6, #30 TAB Prov:BRENT OTERO PA-C 04/23/17 Ibuprofen* (Motrin*) 800 Mg Tab, 800 MG PO Q6H PRN for PAIN AND OR ELEVATED TEMP, #30 TAB Prov:FABIOLA FOUNTAIN MD 10/10/16 Cephalexin* (Keflex*) 500 Mg Capsule, 500 MG PO QID for 7 Days, CAP Prov:BERENICE COHEN PA-C 09/04/16 Hydrocodone/Acetaminophen (Cumming 5-325 Tablet) 1 Each Tablet, 1 TAB PO Q6H PRN for PAIN, #12 TAB Prov:BERENICE COHEN PA-C 09/04/16 Acetaminophen* (Tylophen*) 500 Mg Capsule, 500 MG PO Q6H PRN for PAIN, #30 TAB Prov:MOR YUJúnior [employer] 12/09/15 Multivit/Min/Fol Ac/Iron/Pren* ( S*) 1 Tab Tab, 1 TAB PO DAILY, #30 TAB Prov:MOR YUJúnior [employer] 12/09/15 Reported Medications [none] Unknown Strength No Conflict Check 12/09/15 [No Meds ] No Conflict Check 03/08/14 Vits W-Ca,Fe,Fa(<1MG) ( #2) 1 Tab Tablet, 1 TAB PO DAILY 02/12/14 [None] No Conflict Check 06/19/10 Allergies Allergies: Coded Allergies: No Known Allergy (Unverified , 02/23/19) PMhx/Soc History of Surgery: Yes ("OVARIAN" SURGERY) Anesthesia Reaction: No Hx Neurological Disorder: No Hx Respiratory Disorders: No Hx Cardiac Disorders: No Hx Psychiatric Problems: No Hx Miscellaneous Medical Probl: No Hx Alcohol Use: Yes (OCCASIONAL) Hx Substance Use: No Hx Tobacco Use: No FmHx Family History: No diabetes Physical Exam Vitals Vital Signs Date Temp Pulse Resp B/P (MAP) Pulse Ox O2 O2 Flow FiO2 Time Delivery Rate 02/23/19 97.6 69 20 128/60 100 16:54 (82) Physical Exam GENERAL: Well-developed, well-nourished female. Appears in no acute distress. HEAD: Normocephalic, atraumatic. EYES: Pupils are equally reactive bilaterally. EOMs grossly intact. No conjunctival erythema. ENT: Moist mucous membranes. No uvula deviation. No kissing tonsils. NECK: Supple. No meningismus. Normal range of motion of the neck. LUNG: Clear to auscultation bilaterally. No rhonchi, wheezing, rales or coarse breath sounds. LEFT CHEST: Tender to palpation of the left chest wall. Ecchymosis noted to the lateral rib cage. No step offs. HEART: Regular rate and rhythm. No murmurs, rubs or gallops. EXTREMITIES: Equal pulses bilaterally. No peripheral clubbing, cyanosis or edema. No unilateral leg swelling. NEUROLOGIC: Alert and oriented. Moving all four extremities without any difficulty. Normal speech. Steady gait. SKIN: Normal color. Warm and dry. No rashes or lesions. Results 24 hrs Current Medications Medications Dose Sig/Griffin Start Time Status Last (Trade) Ordered Route PRN Stop Time Admin Dose Reason Admin 1 tab ONCE ONCE 02/23/19 DC 02/23/19 Acetaminophen PO 17:30 17:42 / 02/23/19 17:31 Hydrocodone Bitart (Cumming ()) Procedures/MDM ED COURSE: The patient was stable throughout ED course. I kept the patient and/or family informed of laboratory and diagnostic imaging results throughout the ED course. DIAGNOSTIC IMAGING: Read by radiologist. Patient: RENATE URENA : 1990 Age: 28 Sex: F MR #: [id number] DOS: 02/23/19 172 Ordering MD: KAYODE ASHLEY PA-C Location: [facility] Room/Bed: PROCEDURE: XR Ribs. CLINICAL INDICATION: Left rib pain following a fall. TECHNIQUE: Three views of the left ribs were obtained. COMPARISON: Chest x-ray 02/23/2019 FINDINGS: Acute mildly displaced anterior left ninth rib fractures present. No additional fractures are noted. The underlying lungs are unremarkable, without pleural effusion or pneumothorax seen. RPTAT:HJJR IMPRESSION: Acute mildly displaced anterior left ninth rib fracture without associated intrathoracic abnormality. Physician Kali Date Time Electronically viewed and signed by Physician Kali on 02/23/2019 20:30 JR/ CC: KAYODE ASHLEY PA-C [phone] Patient: RENATE URENA : 1990 Age: 28 Sex: F MR #: [id number] DOS: 02/23/19 172 Ordering MD: KAYODE ASHLEY PA-C Location: [facility] Room/Bed: PROCEDURE: XR Chest. CLINICAL INDICATION: Chest left rib pain following a fall. TECHNIQUE: Portable AP view of the chest was obtained. COMPARISON: Left rib series 02/23/2019 FINDINGS: The cardiomediastinal silhouette is within normal limits. The lungs are clear. There is no evidence for pleural effusion, pneumothorax or pulmonary vascular congestion. Mildly displaced anterior left ninth rib fractures noted. No additional acute osseous abnormalities are seen. RPTAT:HJJR IMPRESSION: No evidence for acute intrathoracic pathology in this patient with a Mailman displaced left anterior 9th rib fracture. Physician Kali Date Time Electronically viewed and signed by Wally Trent Physician on 02/23/2019 20:31 JR/ CC: KAYODE ASHLEY PA-C [phone] MEDICAL DECISION MAKING: Patient is a 28-year-old female presents the ER for concerns of left-sided rib pain x4 days after a fall injury.. Vital signs were reviewed. Patient is afebrile. Patient was not hypoxic. Patient was hemodynamically stable. On exam, patient did have ecchymosis to her left lateral chest wall. X-ray imaging was obtained. X-ray imaging showed fracture of the left ninth rib. Low suspicion for ACS, pericarditis, arrhythmia, pneumothorax, pericardial tamponade, pulmonary contusion.. Patient was nontoxic, [id number] prior to discharge. The patient has been prescribed Cumming during this encounter. PRESCRIPTIONS: Cumming, Ibuprofen The patient has been warned about the use of narcotics. The patient should not drive or operate heavy machinery while taking this medication. The patient was also warned about the addictive properties of narcotic medications. Narcan prescription was NOT provided given the following criteria: 1. Less 10 tablets of Cumming 5 mg were prescribed. 2. No concomitant opiate and benzodiazepine prescriptions were not provided. 3. There was no obvious evidence of prior history of opiate abuse or abuse. DISCHARGE: At this time, patient is stable for discharge and outpatient management. I have instructed the patient to follow-up with his/her primary care physician in 1-2 days. I have discussed with the patient the possibility of needing to see a specialist for further workup and imaging studies if symptoms persist. I have instructed the patient to promptly return to the ER for any new or worsening symptoms including increased pain, fever, nausea, vomiting, weakness or LOC. The patient and/or family expressed understanding of and agreement with this plan. All questions were answered. Home care instructions were provided. Disclaimer: Inadvertent spelling and grammatical errors are likely due to EHR/dictation software use and do not reflect on the overall quality of patient care. Also, please note that the electronic time recorded on this note does not necessarily reflect the actual time of the patient encounter. Departure Diagnosis: Primary Impression: Rib fracture Encounter type: initial encounter Rib fracture type: single rib Fracture type: closed Laterality: left Qualified Codes: S22.32XA - Fracture of one rib, left side, initial encounter for closed fracture Condition: Fair Patient Instructions: Fracture, Rib Referrals: [facility] Additional Instructions: Llame al doctor MAANA y ovidio nydia PREET PARA DENTRO DE 1-2 PRITCHARD.Dgale a la secretaria que nosotros le instruimos hacer esta preet.Avise o llame si porras condicin se empeora antes de la preet. Regresa aqui si peor o no mejor. KAYODE ASHLEY PA-C February 23, 2019 19:17
[2019-02-23] MEDS ORDERED: HYDR-4011 PO (20:47)
[2019-02-23] MEDS ORDERED: IBUP-1542 PO (20:48)
== END 2019-02-23 21:24 | disposition home or self-care (01) ==
LOC: FTE 16:49
DX: S22.32XA Fracture of one rib, left side, initial encounter for closed fracture (principal); W01.0XXA Fall on same level from slipping, tripping and stumbling without subsequent striking against object, initial encounter; Y92.002 Bathroom of unspecified non-institutional (private) residence as the place of occurrence of the external cause
CPT/HCPCS: 71045; 71100; Z7502; Z7610

== ENCOUNTER 2019-05-23 17:35 | Emergency (ER) | payer MEDICAID ==
[~2019-05-23] VITALS: Ht 162.6 cm; Wt 62.1 kg
[~2019-05-23 17:35] MED LIST changes: +LORA1TAB PO
[2019-05-23 17:42] VITALS: BP 118/68; PULSE 61; RESP 17; Ht 162.6 cm; Wt 62.1 kg
== END 2019-05-23 19:45 | disposition home or self-care (01) ==
LOC: FTE 17:35
DX: M54.5 Low back pain (principal); R10.9 Unspecified abdominal pain; R42 Dizziness and giddiness; R11.0 Nausea; R35.0 Frequency of micturition; F41.9 Anxiety disorder, unspecified
CPT/HCPCS: 81003; 81025; 82962; 93005; Z7610